=== PATIENT | female | born 1945 | race Two or more races ===

== ENCOUNTER 2020-11-25 12:38 | Inpatient (IN) | payer OTHER ==
[~2020-11-25] VITALS: Ht 99.1 cm; Wt 56.7 kg
[2020-11-25] MEDS ORDERED: GLIMEPIRIDE4 MG (13:12)
[2020-11-25] MEDS ORDERED: SYNTHROID50 MCG PO (13:13)
[2020-11-25] MEDS ORDERED: SIMVASTATIN40 MG PO (13:13)
[2020-11-25] MEDS ORDERED: LEVOTHYROXINE25 MCG PO (13:13)
[2020-11-25] MEDS ORDERED: VASOTEC10 MG PO (13:13)
== END 2020-12-08 13:04 | disposition home or self-care (01) | DRG 440 ==
LOC: ER 12:38 → SEC-K 11-26 10:58 → MEDI 11-26 10:58
PROVIDERS: ADMIT Internal Medicine; ATTEND Internal Medicine
PROC: BW21ZZZ Computerized Tomography (CT Scan) of Abdomen and Pelvis (ICD-10-PCS; principal; 2020-11-25)
PROC: BW40ZZZ Ultrasonography of Abdomen (ICD-10-PCS; 2020-11-26)
PROC: BF37ZZZ Magnetic Resonance Imaging (MRI) of Pancreas (ICD-10-PCS; 2020-11-26)
PROC: 02HV33Z Insertion of Infusion Device into Superior Vena Cava, Percutaneous Approach (ICD-10-PCS; 2020-11-27)
PROC: BW30ZZZ Magnetic Resonance Imaging (MRI) of Abdomen (ICD-10-PCS; 2020-12-04)
DX: K85.80 Other acute pancreatitis without necrosis or infection (principal); I10 Essential (primary) hypertension; E78.49 Other hyperlipidemia; E86.0 Dehydration; E03.8 Other specified hypothyroidism; K81.1 Chronic cholecystitis; Z20.822 Contact with and (suspected) exposure to COVID-19
CPT/HCPCS: 74185